=== PATIENT | female | born 1975 | race American Indian/Alaskan Native ===

== ENCOUNTER 2017-04-11 20:33 | Emergency (ER) | payer MEDICAID, OTHER ==
[2017-04-11 21:10] VITALS: BP 127/77
[2017-04-11 21:21] LABS: Basophils % (Auto) 1.1 % (0.0-1.8); Eosinophils % (Auto) 4.4 % (0.0-4.3); Hematocrit 28.7 % (30.3-42.9); Hemoglobin 8.6 gm/dl (10.1-14.3); Mean Corpuscular HGB Conc 30 % (30-34); Platelet Count 223 K/mm3 (140-440); Red Cell Distribution Width 18.7 % (13.2-15.2); White Blood Count 4.1 K/mm3 (4.5-11.0)
[2017-04-11 21:22] LABS: Mean Corpuscular Hemoglobin 21 pg (28-32); Mean Corpuscular Volume 68 fl (79-97)
[2017-04-11 21:41] LABS: Anion Gap 19 mmol/L; BUN/Creatinine Ratio 24; Blood Urea Nitrogen 19 mg/dL (7-17); Calcium 8.7 mg/dL (8.4-10.2); Carbon Dioxide 22 mmol/L (22-30); Chloride 103.2 mmol/L (98-107); Glucose 95 mg/dL (65-100); Potassium 4.2 mmol/L (3.6-5.0); Sodium 140 mmol/L (137-145)
== END 2017-04-11 23:46 | disposition left against medical advice (07) ==
LOC: ED 20:33
DX: R07.89 Other chest pain (principal); R42 Dizziness and giddiness; Z53.21 Procedure and treatment not carried out due to patient leaving prior to being seen by health care provider
CPT/HCPCS: 36415; 80048; 84484; 84703; 85025; 93005; 93010

== ENCOUNTER 2017-09-18 12:00 | Emergency (ER) | payer OTHER ==
[2017-09-18] MEDS ORDERED: KEPPRA 1,000 MG/NS 0.75% 100ML 1,000 MG/100 ML BAG IV ONE ×2 (13:07→15:38)
--- NOTE | 2017-09-18 13:27 | Emergency Department Report ---
HPI - General Chief Complaint: Seizure Time Seen by Provider: 09/18/17 12:57 - HPI HPI: Room 23 The patient is a 42-year-old female presenting with a chief complaint of syncope. The patient brought in to the hospital by EMS after being found unresponsive on the floor. The patient is amnestic to the events and states she remembers laying down on the bed at approximately 10:00 and then EMS transfer her to the hospital. History is obtained from patient's godmother ( Steffany Lambert [phone]). The godmother states last night at 01:00 patient was found on her bed and appeared to be "choking", was unresponsive and "bleeding on her pillow." EMS was called. When EMS arrived the patient unresponsive and refused to come to the emergency department. At 05:00 patient had another episode of unresponsiveness and appeared to be choking. Per the godmother the patient again did not want to be taken to the hospital. At 10:00 the patient's daughter found her unresponsive in the dining room floor. This is when EMS was called again and transported the patient to the ED. The patient now complains of feeling dizzy and discomfort to the tongue. Patient denies any previous history of seizures. The godmother states there was no seizure activity seen Location: [See above] Duration: [See above] Quality: Unresponsive Severity: Moderate Modifying factors: [see above] Context: [see above] Mode of transportation: [not driving] ED Past Medical Hx - Past Medical History Previous Medical History?: Yes Hx Psychiatric Treatment: Yes (Panic attacks/anxiety) Additional medical history: Hyperglycemia, Anemia - Family History Family history: no significant - Social History Smoking Status: Former Smoker (none x 2 years) Substance Use Type: None - Medications Home Medications: Home Medications Medication Instructions Recorded Confirmed Last Taken Type Sertraline [Zoloft] 25 mg PO QDAY 09/18/17 09/18/17 Unknown History ED Review of Systems ROS: Stated complaint: SEIZURE Other details as noted in HPI Neurological: other (dizziness) Physical Exam - Physical Exam Vital Signs: Vital Signs 09/18/17 09/18/17 09/18/17 12:09 12:16 12:22 Temperature 99 F Pulse Rate 83 87 Respiratory 27 H 24 12 Rate Blood Pressure 117/76 117/76 Blood Pressure 117/76 [Right] O2 Sat by Pulse 98 98 99 Oximetry Physical Exam: GENERAL: The patient is well-developed well-nourished female lying on stretcher not appearing to be in acute distress. [] HEENT: Normocephalic. Atraumatic. Extraocular motions are intact. Patient has moist mucous membranes. Approximately 2 cm linear laceration to the mid tongue just left of midline NECK: Supple. No meningitic signs are noted. There is no adenopathy noted. CHEST/LUNGS: Clear to auscultation. There is no respiratory distress noted. HEART/CARDIOVASCULAR: Regular. There is no tachycardia. There is no gallop rub or murmur. ABDOMEN: Abdomen is soft, nontender. Patient has normal bowel sounds. There is no abdominal distention. SKIN: There is no rash. There is no edema. There is no diaphoresis. NEURO: The patient is awake, alert, and oriented. The patient is cooperative. The patient has no focal neurologic deficits. The patient has normal speech. Cranial nerves II through XII grossly intact, no drift MUSCULOSKELETAL: There is no limitation range of motion. ED Course Vital Signs 09/18/17 09/18/17 09/18/17 12:09 12:16 12:22 Temperature 99 F Pulse Rate 83 87 Respiratory 27 H 24 12 Rate Blood Pressure 117/76 117/76 Blood Pressure 117/76 [Right] O2 Sat by Pulse 98 98 99 Oximetry - Consultations Consultation #1: 09/18/17 15:19 [facility] called 09/18/17 15:[address] Conway ([facility]). Will check bed status and call back ED Medical Decision Making - Lab Data Result diagrams: 09/18/17 13:15 09/18/17 13:15 - Differential Diagnosis seizure, syncope, dysrhythmia, electrolyte abnormality Critical care attestation.: If time is entered above; I have spent that time in minutes in the direct care of this critically ill patient, excluding procedure time. ED Disposition Clinical Impression: Syncope Disposition: [id number]/TX-70 ANOTHER TYPE HLTHCARE Is pt being admited?: No Does the pt Need Aspirin: Yes Condition: Fair Instructions: Syncope (ED) Referrals: PRIMARY CARE, [Primary Care Provider] - 3-5 Days Time of Disposition: 16:19 (awaiting transport [facility]
[2017-09-18 13:48] LABS: Mean Corpuscular HGB Conc 29 % (30-34); Platelet Count 355 K/mm3 (140-440); Red Blood Count 4.48 M/mm3 (3.65-5.03)
[2017-09-18 13:49] LABS: Hematocrit 30.2 % (30.3-42.9); Hemoglobin 8.8 gm/dl (10.1-14.3); Mean Corpuscular Hemoglobin 20 pg (28-32); Mean Corpuscular Volume 67 fl (79-97); Red Cell Distribution Width 20.1 % (13.2-15.2)
[2017-09-18 14:11] LABS: BUN/Creatinine Ratio 17; Blood Urea Nitrogen 10 mg/dL (7-17); Calcium 8.8 mg/dL (8.4-10.2); Hemolysis Index 0
[2017-09-18 14:38] LABS: Creatine Kinase MB 10.5 ng/mL (0.0-4.0)
--- NOTE | 2017-09-18 15:12 | Cat Scan Report ---
CT scan of head without IV contrast: History: Seizure. Findings: Ventricles are normal in size and midline in location. No evidence of acute ischemia, hemorrhage or mass. No extra-axial fluid collection. Mild volume loss. Visualized sinuses and mastoid air cells and appears unremarkable. Impression: No acute intracranial abnormality.
[2017-09-18 16:09] VITALS: BP 119/83
[2017-09-18 16:27] LABS: Amphetamine Screen,Urine PRESUMPTIVE NEGATIVE; Benzodiazepines Screen,Urine PRESUMPTIVE NEGATIVE; Cannabinoid Screen,Urine PRESUMPTIVE NEGATIVE; Cocaine Screen,Urine PRESUMPTIVE NEGATIVE; Methadone Screen,Urine PRESUMPTIVE NEGATIVE; Opiate Screen,Urine PRESUMPTIVE NEGATIVE
== END 2017-09-18 17:30 | disposition other institution (70) ==
LOC: ED 12:00
DX: R55 Syncope and collapse (principal); Z87.891 Personal history of nicotine dependence
CPT/HCPCS: 36415; 70450; 80048; 80307; 82550; 82553; 82962; 83735; 84484; 84703; 85027; 93005; 93010; 96365; 99285; J1953

== ENCOUNTER 2021-12-19 11:29 | Emergency (ER) | payer OTHER ==
[2021-12-19 13:56] VITALS: BP 130/76
[2021-12-19 14:45] LABS: Hemoglobin 11.4 gm/dl (10.1-14.3); Mean Corpuscular HGB Conc 32 % (30-34); Mean Corpuscular Volume 85 fl (79-97); Platelet Count 231 K/mm3 (140-440); Red Blood Count 4.24 M/mm3 (3.65-5.03); Red Cell Distribution Width 14.5 % (13.2-15.2)
[2021-12-19 14:59] LABS: Alanine Aminotransferase 42 units/L (7-56); Albumin 4.1 g/dL (3.9-5); BUN/Creatinine Ratio 11; Blood Urea Nitrogen 9 mg/dL (7-17); Calcium 9.1 mg/dL (8.4-10.2); Hemolysis Index 0
== END 2021-12-19 14:00 | disposition left against medical advice (07) ==
LOC: ED 11:29
DX: R53.1 Weakness (principal); R19.7 Diarrhea, unspecified; Z53.21 Procedure and treatment not carried out due to patient leaving prior to being seen by health care provider
CPT/HCPCS: 36415; 80053; 83690; 84703; 85027